=== PATIENT | female | born 1960 | race African-American/Black ===

== ENCOUNTER 2017-01-21 09:29 | Inpatient (IN) | payer MEDICAID, OTHER ==
[~2017-01-21] VITALS: Ht 172.7 cm; Wt 68.0 kg
[~2017-01-21 09:29] MED LIST: ASPI-1159 PO; EFAV600T PO; EMTR200C3 PO; HYDR-519 PO; MORP60TA6 PO; SERT25TA PO; TENO300T PO
[2017-01-21] MEDS ORDERED: ONDANSETRON HCL 4MG/2ML VIAL IV STA (09:41)
[2017-01-21] MEDS ORDERED: MORPHINE SULFATE 4 MG/ML CPJ (NOT FOR IM USE) IV STA (09:41)
[2017-01-21] MEDS ORDERED: SODIUM CHLORIDE 0.9% 1000ML BAG (SEPSIS BOLUS) IV ONE (09:45)
[2017-01-21 09:59] LABS: HEMATOCRIT. 40.3 % (36.0-48.0); HEMOGLOBIN. 13.6 g/dL (12.0-16.0); MEAN CORPUSCULAR HEMOGLOBIN 30.8 pg (28.0-32.0); MEAN CORPUSCULAR VOLUME 91.2 fL (81.0-99.0); MEAN PLATELET VOLUME 10.4 fl (7.4-10.4); PLATELET 311 x1000/uL (130-400); RED BLOOD CELL COUNT 4.42 mill/uL (4.2-5.4); RED CELL DISTRIBUTION WIDTH 19.2 % (11.6-14.6)
[2017-01-21 10:05] LABS: INR 1.1; PROTHROMBIN TIME 11.4 sec
[2017-01-21 10:15] LABS: CARBON DIOXIDE 27 mEq/L (21-32); CHLORIDE 90 mEq/L (98-107); ETHANOL BLOOD < 10 mg/dL; TROPONIN I < 0.02 ng/mL (0.00-0.04)
[2017-01-21] MEDS ORDERED: PIPERACILLIN/TAZ 3.375G PREMIX 50 ML IV ONE (10:30)
[2017-01-21] MEDS ORDERED: KCL 20MEQ/100ML PREMIX 100 ML IV ONE (10:30)
[2017-01-21 10:32] LABS: PLATELET ESTIMATE NORMAL
[2017-01-21] MEDS ORDERED: BUPIVACAINE HCL/PF 0.5% (5MG/ML) 10ML ONE (11:25)
[2017-01-21] MEDS ORDERED: SKIN ADHESIVE 0.7 GM EA TOP ONE (11:38)
[2017-01-21] MEDS ORDERED: BUPIVACAINE HCL/PF 0.25% (2.5MG/ML) 10ML ONE (11:39)
[2017-01-21] MEDS ORDERED: MIDAZOLAM HCL 2 MG/2 ML VIAL ONE (11:43)
[2017-01-21] MEDS ORDERED: ACETAMINOPHEN 650MG SUPP PR PRN (11:45)
[2017-01-21] MEDS ORDERED: MORPHINE SULFATE 2 MG/ML CPJ (NOT FOR IM USE) IV PRN (11:45)
[2017-01-21] MEDS ORDERED: KCL 20MEQ/100ML PREMIX 100 ML IV NR (11:45)
[2017-01-21] MEDS ORDERED: ONDANSETRON HCL 4MG/2ML VIAL IV PRN ×3 (11:45→12:45)
[2017-01-21] MEDS ORDERED: FENTANYL CITRATE/PF 50MCG/ML 2ML VIAL ONE ×3 (11:46→13:48)
[2017-01-21] MEDS ORDERED: SUCCINYLCHOLINE CHLORIDE 200MG/10ML VIAL IV ONE (11:47)
[2017-01-21] MEDS ORDERED: LIDOCAINE HCL 1% 20ML VIAL (Pyxis) INJ ONE (11:47)
[2017-01-21] MEDS ORDERED: PROPOFOL 200MG/20ML VIAL IV ONE (11:47)
[2017-01-21 11:48] LABS: CLARITY URINE CLEAR (CLEAR); COLOR URINE DARK YELLOW (YELLOW); GLUCOSE URINE NEGATIVE (NEGATIVE); KETONES URINE 2+ (NEGATIVE); LEUKOCYTE ESTERASE URINE 1+ (NEGATIVE); NITRITE URINE NEGATIVE (NEGATIVE); OCCULT BLOOD URINE TRACE (NEGATIVE); PROTEIN URINE 2+ (NEGATIVE); SPECIFIC GRAVITY URINE 1.024 (1.005-1.030)
[2017-01-21] MEDS ORDERED: ROCURONIUM BROMIDE 10MG/ML VIAL 5ML IV ONE (11:49)
[2017-01-21 12:18] LABS: *AMPHETAMINES SCREEN URINE NEGATIVE (NEGATIVE); *BARBITURATES SCREEN URINE NEGATIVE (NEGATIVE); *BENZODIAZEPINES SCREEN URINE NEGATIVE (NEGATIVE); *COCAINE SCREEN URINE NEGATIVE (NEGATIVE); CANNABINOID URINE SCREEN PRESUMTIVE POSITIVE (NEGATIVE); METHADONE URINE SCREEN NEGATIVE (NEGATIVE); OPIATES URINE SCREEN PRESUMTIVE POSITIVE (NEGATIVE); PHENCYCLIDINE URINE SCREEN NEGATIVE (NEGATIVE)
[2017-01-21] MEDS ORDERED: SODIUM CHLORIDE 0.9% 1,000 ML IV SCH ×2 (12:28→12:39)
[2017-01-21] MEDS ORDERED: IPRATROPIUM/ALBUTEROL 0.5-3(2.5)MG/3ML NEB INH PRN (12:30)
[2017-01-21] MEDS ORDERED: PIPERACILLIN/TAZ 3.375G PREMIX 50 ML IV SCH (12:30)
[2017-01-21] MEDS ORDERED: ENOXAPARIN 40MG/0.4ML SYR SUBCUT SCH (12:30)
[2017-01-21] MEDS ORDERED: ONDANSETRON HCL 4MG/2ML VIAL ONE (12:47)
[2017-01-21] MEDS ORDERED: DEXAMETHASONE 4MG/ML 1ML VIAL ONE (12:47)
[2017-01-21] MEDS ORDERED: ESMOLOL HCL 10MG/ML 10ML VIAL IV ONE (12:49)
[2017-01-21] MEDS ORDERED: NEOSTIGMINE METHYLSULFATE 1MG/ML 10 ML VIAL ONE (13:15)
[2017-01-21] MEDS ORDERED: GLYCOPYRROLATE 0.2 MG/ML 2ML VIAL ONE (13:15)
[2017-01-21] MEDS: HYDROMORPHONE HCL/PF 2MG/ML CPJ IV PRN ×3 (14:15→14:29)
[2017-01-21] MEDS ORDERED: ONDANSETRON INJ IV PRN (14:45)
[2017-01-21] MEDS ORDERED: LABETALOL 5MG/ML SYR 20 MG/4 ML SYRINGE IV PRN (14:45)
[2017-01-21] MEDS ORDERED: NALOXONE INJ IV PRN (14:45)
[2017-01-21] MEDS ORDERED: DIPHENHYDRAMINE INJ IV PRN (14:45)
[2017-01-21] MEDS: HYDROMORPHONE PCA 10MG/50ML IV PRN (14:57)
[2017-01-21 16:39] VITALS: BP 145/89
[2017-01-21] MEDS: DEXT 5%/0.45% NACL KCL 20MEQ/L 1,000 ML IV SCH (18:12)
[2017-01-21] MEDS: PIPERACILLIN/TAZ 3.375G PREMIX 50 ML IV SCH (18:12)
[2017-01-21 20:00] VITALS: BP 150/97
[2017-01-21] MEDS: FAMOTIDINE 20MG/2ML VIAL IV SCH (22:37)
[2017-01-22] VITALS: BP 124/86
[2017-01-22] MEDS ORDERED: KCL 20MEQ/100ML PREMIX 100 ML IV NR (00:30)
[2017-01-22] MEDS: PIPERACILLIN/TAZ 3.375G PREMIX 50 ML IV SCH ×5 (01:22→23:51)
[2017-01-22 04:00] VITALS: BP 100/69
[2017-01-22 06:50] LABS: HEMATOCRIT. 31.1 % (36.0-48.0); HEMOGLOBIN. 10.5 g/dL (12.0-16.0); MEAN CORPUSCULAR HEMOGLOBIN 31.2 pg (28.0-32.0); MEAN CORPUSCULAR VOLUME 92.2 fL (81.0-99.0); MEAN PLATELET VOLUME 10.3 fl (7.4-10.4); PLATELET 325 x1000/uL (130-400); RED BLOOD CELL COUNT 3.38 mill/uL (4.2-5.4); RED CELL DISTRIBUTION WIDTH 19.4 % (11.6-14.6)
[2017-01-22] MEDS: HYDROMORPHONE PCA 10MG/50ML IV PRN (07:45)
[2017-01-22 08:00] VITALS: BP 100/72
[2017-01-22] MEDS: FAMOTIDINE 20MG/2ML VIAL IV SCH ×2 (08:40→20:42)
[2017-01-22 09:38] LABS: CARBON DIOXIDE 27 mEq/L (21-32); CHLORIDE 105 mEq/L (98-107); HDL CHOLESTEROL 11 mg/dL (40-59); LDL CHOLESTEROL 98 mg/dL (5-100)
[2017-01-22] MEDS: DEXT 5%/0.45% NACL KCL 20MEQ/L 1,000 ML IV SCH ×2 (10:48→20:41)
[2017-01-22 12:00] VITALS: BP 96/70
[2017-01-22 16:00] VITALS: BP 112/78
[2017-01-22 16:31] LABS: PLATELET ESTIMATE NORMAL
[2017-01-22 20:00] VITALS: BP 104/64
[2017-01-23] VITALS: BP 95/69
[2017-01-23 04:00] VITALS: BP 116/70
[2017-01-23] MEDS: DEXT 5%/0.45% NACL KCL 20MEQ/L 1,000 ML IV SCH ×2 (06:23→16:59)
[2017-01-23] MEDS: PIPERACILLIN/TAZ 3.375G PREMIX 50 ML IV SCH ×2 (06:23→12:16)
[2017-01-23 07:12] LABS: BASOPHILS % 0.4 % (0.0-2.0); EOSINOPHILS % 1.4 % (0.0-5.0); HEMATOCRIT. 26.3 % (36.0-48.0); HEMOGLOBIN. 8.5 g/dL (12.0-16.0); LYMPHOCYTES % 8.2 % (20.0-50.0); MEAN CORPUSCULAR HEMOGLOBIN 30.3 pg (28.0-32.0); MEAN CORPUSCULAR VOLUME 93.6 fL (81.0-99.0); MEAN PLATELET VOLUME 9.9 fl (7.4-10.4); MONOCYTES % 9.4 % (2.0-8.0); NEUTROPHILS % 80.6 % (40.0-76.0); PLATELET 328 x1000/uL (130-400); RED BLOOD CELL COUNT 2.81 mill/uL (4.2-5.4); RED CELL DISTRIBUTION WIDTH 19.2 % (11.6-14.6)
[2017-01-23 07:15] LABS: CARBON DIOXIDE 29 mEq/L (21-32); CHLORIDE 104 mEq/L (98-107)
[2017-01-23 08:00] VITALS: BP 110/65
[2017-01-23] MEDS: FAMOTIDINE 20MG/2ML VIAL IV SCH ×2 (08:56→21:27)
[2017-01-23 12:00] VITALS: BP 111/75
[2017-01-23] MEDS: AMPICILLIN 2,000 MG in SODIUM CHLORIDE 0.9% 100 ML IV SCH ×2 (14:39→18:15)
[2017-01-23 16:00] VITALS: BP 116/79
[2017-01-23 20:00] VITALS: BP 113/78
[2017-01-23] MEDS: HYDROMORPHONE PCA 10MG/50ML IV PRN (22:45)
[2017-01-24] VITALS: BP 137/76
[2017-01-24] MEDS: DEXT 5%/0.45% NACL KCL 20MEQ/L 1,000 ML IV SCH ×3 (01:37→23:00)
[2017-01-24] MEDS: AMPICILLIN 2,000 MG in SODIUM CHLORIDE 0.9% 100 ML IV SCH ×4 (01:37→17:57)
[2017-01-24 04:00] VITALS: BP 144/81
[2017-01-24 06:18] LABS: HEMATOCRIT. 24.6 % (36.0-48.0); HEMOGLOBIN. 8.1 g/dL (12.0-16.0); MEAN CORPUSCULAR HEMOGLOBIN 30.7 pg (28.0-32.0); MEAN CORPUSCULAR VOLUME 93.4 fL (81.0-99.0); MEAN PLATELET VOLUME 9.1 fl (7.4-10.4); PLATELET 325 x1000/uL (130-400); RED BLOOD CELL COUNT 2.64 mill/uL (4.2-5.4); RED CELL DISTRIBUTION WIDTH 19.9 % (11.6-14.6)
[2017-01-24 07:22] LABS: CARBON DIOXIDE 30 mEq/L (21-32); CHLORIDE 106 mEq/L (98-107)
[2017-01-24 08:00] VITALS: BP 125/78
[2017-01-24] MEDS: FAMOTIDINE 20MG/2ML VIAL IV SCH ×2 (08:33→23:01)
[2017-01-24 08:41] LABS: PLATELET ESTIMATE NORMAL
[2017-01-24 12:00] VITALS: BP 132/78
[2017-01-24 16:00] VITALS: BP 119/80
[2017-01-24 20:00] VITALS: BP 153/78
[2017-01-24] MEDS: HYDROMORPHONE PCA 10MG/50ML IV PRN (23:04)
[2017-01-25] VITALS: BP 152/87
[2017-01-25] MEDS: AMPICILLIN 2,000 MG in SODIUM CHLORIDE 0.9% 100 ML IV SCH ×3 (01:03→13:05)
[2017-01-25 04:00] VITALS: BP 166/80
[2017-01-25 06:54] LABS: HEMATOCRIT. 26.8 % (36.0-48.0); HEMOGLOBIN. 8.9 g/dL (12.0-16.0); MEAN CORPUSCULAR HEMOGLOBIN 30.6 pg (28.0-32.0); MEAN CORPUSCULAR VOLUME 92.4 fL (81.0-99.0); MEAN PLATELET VOLUME 8.8 fl (7.4-10.4); PLATELET 397 x1000/uL (130-400); RED BLOOD CELL COUNT 2.91 mill/uL (4.2-5.4); RED CELL DISTRIBUTION WIDTH 18.6 % (11.6-14.6)
[2017-01-25 08:00] VITALS: BP 126/72
[2017-01-25 08:01] LABS: CHLORIDE 102 mEq/L (98-107)
[2017-01-25] MEDS: DEXT 5%/0.45% NACL KCL 20MEQ/L 1,000 ML IV SCH ×2 (08:41→18:19)
[2017-01-25] MEDS: FAMOTIDINE 20MG/2ML VIAL IV SCH ×2 (08:41→22:42)
[2017-01-25 08:43] LABS: CARBON DIOXIDE 25 mEq/L (21-32)
[2017-01-25 12:00] VITALS: BP 128/84
[2017-01-25 13:06] LABS: NUCLEATED RED BLOOD CELLS 1 /100 WBC
[2017-01-25 13:07] LABS: PLATELET ESTIMATE NORMAL
[2017-01-25] MEDS: HYDROCODONE/ACETAMINOPHEN 10/325MG TABLET PO SCH ×2 (14:54→22:42)
[2017-01-25 16:00] VITALS: BP 134/82
[2017-01-25] MEDS: HYDROMORPHONE HCL/PF 2MG/ML CPJ IV PRN ×2 (16:43→18:18)
[2017-01-25 20:00] VITALS: BP 142/85
[2017-01-25] MEDS ORDERED: MAGNESIUM 1 G PREMIX 100 ML IV NR (20:00)
[2017-01-26] VITALS: BP 127/71
[2017-01-26] MEDS: AMPICILLIN 2,000 MG in SODIUM CHLORIDE 0.9% 100 ML IV SCH ×5 (01:48→18:51)
[2017-01-26] MEDS: HYDROMORPHONE HCL/PF 2MG/ML CPJ IV PRN (02:04)
[2017-01-26 04:00] VITALS: BP 118/77
[2017-01-26] MEDS: HYDROCODONE/ACETAMINOPHEN 10/325MG TABLET PO SCH ×4 (05:33→23:48)
[2017-01-26 08:00] VITALS: BP 131/79
[2017-01-26] MEDS: FAMOTIDINE 20MG/2ML VIAL IV SCH ×2 (09:01→22:12)
[2017-01-26] MEDS: DEXT 5%/0.45% NACL KCL 20MEQ/L 1,000 ML IV SCH ×3 (09:01→23:42)
[2017-01-26] MEDS ORDERED: EFAVIRENZ 600 MG PO SCH (09:45)
[2017-01-26 12:00] VITALS: BP 97/98
[2017-01-26] MEDS: EFAVIRENZ 600MG TABLET PO SCH (12:10)
[2017-01-26] MEDS: TENOFOVIR 300MG TABLET PO SCH (12:10)
[2017-01-26] MEDS: EMTRICITABINE 200MG CAPSULE PO SCH (12:11)
[2017-01-26] MEDS: SERTRALINE HCL 25MG TABLET PO SCH (12:14)
[2017-01-26 16:00] VITALS: BP 123/73
[2017-01-26 20:00] VITALS: BP 119/82
[2017-01-27] VITALS: BP 117/72
[2017-01-27] MEDS: AMPICILLIN 2,000 MG in SODIUM CHLORIDE 0.9% 100 ML IV SCH ×4 (00:33→19:51)
[2017-01-27 04:00] VITALS: BP 144/89
[2017-01-27] MEDS: HYDROCODONE/ACETAMINOPHEN 10/325MG TABLET PO SCH ×4 (06:33→23:14)
[2017-01-27 06:54] LABS: BASOPHILS % 0.8 % (0.0-2.0); EOSINOPHILS % 1.5 % (0.0-5.0); HEMATOCRIT. 27.5 % (36.0-48.0); LYMPHOCYTES % 14.7 % (20.0-50.0); MEAN CORPUSCULAR HEMOGLOBIN 30.5 pg (28.0-32.0); MEAN CORPUSCULAR VOLUME 93.6 fL (81.0-99.0); MEAN PLATELET VOLUME 8.3 fl (7.4-10.4); MONOCYTES % 4.7 % (2.0-8.0); NEUTROPHILS % 78.3 % (40.0-76.0); PLATELET 413 x1000/uL (130-400); RED BLOOD CELL COUNT 2.94 mill/uL (4.2-5.4); RED CELL DISTRIBUTION WIDTH 19.4 % (11.6-14.6)
[2017-01-27 08:00] VITALS: BP 121/77
[2017-01-27] MEDS: TENOFOVIR 300MG TABLET PO SCH (08:14)
[2017-01-27] MEDS: EFAVIRENZ 600MG TABLET PO SCH (08:14)
[2017-01-27] MEDS: SERTRALINE HCL 25MG TABLET PO SCH (08:15)
[2017-01-27] MEDS: EMTRICITABINE 200MG CAPSULE PO SCH (08:15)
[2017-01-27] MEDS: FAMOTIDINE 20MG/2ML VIAL IV SCH ×2 (08:15→23:13)
[2017-01-27] MEDS ORDERED: LEVO500T15 PO (09:16)
[2017-01-27] MEDS: HYDROMORPHONE HCL/PF 2MG/ML CPJ IV PRN (09:50)
[2017-01-27 12:00] VITALS: BP 108/69
[2017-01-27] MEDS: DEXT 5%/0.45% NACL KCL 20MEQ/L 1,000 ML IV SCH ×2 (12:09→19:54)
[2017-01-27 16:00] VITALS: BP 121/83
[2017-01-27 20:00] VITALS: BP 142/85
[2017-01-28] VITALS: BP 134/85
[2017-01-28] MEDS: AMPICILLIN 2,000 MG in SODIUM CHLORIDE 0.9% 100 ML IV SCH ×3 (02:20→13:28)
[2017-01-28 04:00] VITALS: BP 133/80
[2017-01-28] MEDS: HYDROCODONE/ACETAMINOPHEN 10/325MG TABLET PO SCH ×2 (05:06→12:19)
[2017-01-28] MEDS: DEXT 5%/0.45% NACL KCL 20MEQ/L 1,000 ML IV SCH (06:15)
[2017-01-28 08:00] VITALS: BP 155/91
[2017-01-28] MEDS: SERTRALINE HCL 25MG TABLET PO SCH (08:57)
[2017-01-28] MEDS: FAMOTIDINE 20MG/2ML VIAL IV SCH (08:57)
[2017-01-28] MEDS: EFAVIRENZ 600MG TABLET PO SCH (08:58)
[2017-01-28] MEDS: TENOFOVIR 300MG TABLET PO SCH (08:58)
[2017-01-28] MEDS: EMTRICITABINE 200MG CAPSULE PO SCH (08:58)
[2017-01-28 12:00] VITALS: BP 136/92
[2017-01-28 15:03] VITALS: BP 129/83
== END 2017-01-28 15:37 | disposition home or self-care (01) | DRG 710 ==
LOC: ER 09:30 → 5WST 10:34 → EDBEDREQSVC 10:37 → EDBEDREQ 10:37 → ENRESERV 10:47 → 6EST 14:00
PROVIDERS: ADMIT Internal Medicine; ATTEND Internal Medicine
PROC: 0D1B0Z4 Bypass Ileum to Cutaneous, Open Approach (ICD-10-PCS; 2017-01-21)
PROC: 0W9G0ZZ Drainage of Peritoneal Cavity, Open Approach (ICD-10-PCS; 2017-01-21)
PROC: 0DTF0ZZ Resection of Right Large Intestine, Open Approach (ICD-10-PCS; principal; 2017-01-21 11:30)
DX: A41.9 Sepsis, unspecified organism (principal); K63.1 Perforation of intestine (nontraumatic); E43 Unspecified severe protein-calorie malnutrition; K65.0 Generalized (acute) peritonitis; E87.0 Hyperosmolality and hypernatremia; K66.8 Other specified disorders of peritoneum; K63.0 Abscess of intestine; R73.9 Hyperglycemia, unspecified; F99 Mental disorder, not otherwise specified; L02.91 Cutaneous abscess, unspecified; I10 Essential (primary) hypertension; E86.0 Dehydration; E87.6 Hypokalemia; K57.90 Diverticulosis of intestine, part unspecified, without perforation or abscess without bleeding; J98.11 Atelectasis; Z79.899 Other long term (current) drug therapy; Z93.3 Colostomy status; Z68.22 Body mass index [BMI] 22.0-22.9, adult
CPT/HCPCS: 36415; 71010; 74176; 80048; 80053; 80061; 80076; 80305; 81001; 83605; 83690; 83735; 83880; 84443; 84484; 85025; 85610; 86850; 86900; 86920; 87040; 87070; 87075; 87077; 87086; 87186; 87205; 88307; 93005; 93970; 96365; 96375; 97116; 97162; 99291; G0482; J0290; J0330; J1100; J1170; J2250; J2270; J2405; J2543; J2704; J2710; J3010; J3475; J3480; J3490; J7030; J7040; J7050; A4315

== ENCOUNTER 2017-01-29 14:09 | Emergency (ER) | payer OTHER ==
[~2017-01-29] VITALS: Ht 162.6 cm; Wt 99.0 kg
[~2017-01-29 14:09] MED LIST changes: +LEVO500T2 PO; -TENO300T PO; +VIRE PO
[2017-01-29] MEDS ORDERED: HYDROCODONE/ACETAMINOPHEN 5/325MG TABLET PO ONE (16:45)
[2017-01-29 18:10] VITALS: BP 106/72
[2017-02-10] MEDS ORDERED: FLUC200T PO (11:38)
[2017-02-10] MEDS ORDERED: LEVO500T2 PO (11:38)
[2017-02-10] MEDS ORDERED: LIP40 PO (11:41)
== END 2017-01-29 19:13 | disposition home or self-care (01) ==
LOC: ER 14:35
DX: K94.03 Colostomy malfunction (principal); I51.7 Cardiomegaly; I11.9 Hypertensive heart disease without heart failure; Z87.891 Personal history of nicotine dependence; Z79.82 Long term (current) use of aspirin; Z93.3 Colostomy status
CPT/HCPCS: 93005; 99283

== ENCOUNTER 2017-02-05 19:03 | Inpatient (IN) | payer OTHER ==
[~2017-02-05] VITALS: Ht 160 cm; Wt 93.0 kg
[~2017-02-05 19:03] MED LIST changes: +LEVO500T15 PO; -LEVO500T2 PO; +TENO300T PO; -VIRE PO
[2017-02-05] MEDS ORDERED: SODIUM CHLORIDE 0.9% 1,000 ML IV ONE (22:10)
[2017-02-05 22:46] LABS: BASOPHILS % 2.4 % (0.0-2.0); EOSINOPHILS % 1.9 % (0.0-5.0); HEMATOCRIT. 32.5 % (36.0-48.0); HEMOGLOBIN. 10.7 g/dL (12.0-16.0); LYMPHOCYTES % 19.9 % (20.0-50.0); MEAN CORPUSCULAR HEMOGLOBIN 30.4 pg (28.0-32.0); MEAN CORPUSCULAR VOLUME 92.2 fL (81.0-99.0); MEAN PLATELET VOLUME 9.1 fl (7.4-10.4); MONOCYTES % 7.4 % (2.0-8.0); NEUTROPHILS % 68.4 % (40.0-76.0); PLATELET 483 x1000/uL (130-400); RED BLOOD CELL COUNT 3.52 mill/uL (4.2-5.4); RED CELL DISTRIBUTION WIDTH 18.4 % (11.6-14.6)
[2017-02-05 22:51] LABS: INR 1.1; PROTHROMBIN TIME 11.1 sec
[2017-02-05 23:00] LABS: CHLORIDE 97 mEq/L (98-107)
[2017-02-05 23:09] LABS: CARBON DIOXIDE 21 mEq/L (21-32)
[2017-02-05] MEDS ORDERED: PIPERACILLIN/TAZ 3.375G PREMIX 50 ML IV ONE (23:15)
[2017-02-05] MEDS ORDERED: VANCOMYCIN 1 G PREMIX 200 ML IV SCH (23:15)
[2017-02-06 01:20] LABS: CLARITY URINE CLEAR (CLEAR); COLOR URINE YELLOW (YELLOW); GLUCOSE URINE NEGATIVE (NEGATIVE); KETONES URINE NEGATIVE (NEGATIVE); LEUKOCYTE ESTERASE URINE 1+ (NEGATIVE); NITRITE URINE NEGATIVE (NEGATIVE); OCCULT BLOOD URINE 2+ (NEGATIVE); PH URINE 5.5 (4.5-8.0); PROTEIN URINE NEGATIVE (NEGATIVE); SPECIFIC GRAVITY URINE 1.017 (1.005-1.030); UROBILINOGEN URINE 0.2 E.U./dL (0.2-1.0)
[2017-02-06 08:00] VITALS: BP 126/81
[2017-02-06 08:45] VITALS: BP 113/76
[2017-02-06 09:00] VITALS: BP 113/76
[2017-02-06 12:00] VITALS: BP 116/63
[2017-02-06] MEDS ORDERED: SODIUM CHLORIDE 0.9% 10ML VIAL ONE (14:02)
[2017-02-06] MEDS ORDERED: IOHEXOL-300 100 ML BOTTLE ONE (14:02)
[2017-02-06 16:00] VITALS: BP 132/87
[2017-02-06] MEDS ORDERED: MORPHINE SULFATE 2 MG/ML CPJ (NOT FOR IM USE) IV PRN (16:30)
[2017-02-06] MEDS: ASPIRIN 81MG EC TABLET PO SCH (17:56)
[2017-02-06] MEDS: HYDROCODONE/ACETAMINOPHEN 10/325MG TABLET PO SCH ×2 (17:56→21:31)
[2017-02-06] MEDS: PIPERACILLIN/TAZ 3.375G PREMIX 50 ML IV SCH ×2 (18:15→23:42)
[2017-02-06] MEDS: VANCOMYCIN 1 G PREMIX 200 ML IV SCH (19:01)
[2017-02-06 20:00] VITALS: BP 128/89
[2017-02-06] MEDS: ENOXAPARIN 30MG/0.3ML SYR SUBCUT SCH (21:33)
[2017-02-07] VITALS: BP 139/84
[2017-02-07 04:00] VITALS: BP 131/86
[2017-02-07] MEDS: PIPERACILLIN/TAZ 3.375G PREMIX 50 ML IV SCH ×3 (05:16→17:27)
[2017-02-07 08:00] VITALS: BP 102/73
[2017-02-07 08:07] LABS: BASOPHILS % 2.1 % (0.0-2.0); EOSINOPHILS % 5.9 % (0.0-5.0); HEMATOCRIT. 31.1 % (36.0-48.0); HEMOGLOBIN. 10.4 g/dL (12.0-16.0); LYMPHOCYTES % 19.6 % (20.0-50.0); MEAN CORPUSCULAR HEMOGLOBIN 30.9 pg (28.0-32.0); MEAN CORPUSCULAR VOLUME 92.5 fL (81.0-99.0); MEAN PLATELET VOLUME 9.1 fl (7.4-10.4); MONOCYTES % 9.9 % (2.0-8.0); NEUTROPHILS % 62.5 % (40.0-76.0); PLATELET 371 x1000/uL (130-400); RED BLOOD CELL COUNT 3.37 mill/uL (4.2-5.4); RED CELL DISTRIBUTION WIDTH 18.4 % (11.6-14.6)
[2017-02-07 08:26] LABS: CARBON DIOXIDE 25 mEq/L (21-32); CHLORIDE 102 mEq/L (98-107); HDL CHOLESTEROL 36 mg/dL (40-59); LDL CHOLESTEROL 207 mg/dL (5-100)
[2017-02-07] MEDS ORDERED: MORPHINE SULFATE 4 MG/ML CPJ (NOT FOR IM USE) IV PRN (09:00)
[2017-02-07] MEDS: ENOXAPARIN 30MG/0.3ML SYR SUBCUT SCH ×2 (09:13→21:07)
[2017-02-07] MEDS: ASPIRIN 81MG EC TABLET PO SCH ×2 (09:14→17:27)
[2017-02-07] MEDS: EFAVIRENZ 600MG TABLET PO SCH (09:14)
[2017-02-07] MEDS: TENOFOVIR 300MG TABLET PO SCH (09:14)
[2017-02-07] MEDS: EMTRICITABINE 200MG CAPSULE PO SCH (09:14)
[2017-02-07] MEDS: HYDROCODONE/ACETAMINOPHEN 10/325MG TABLET PO SCH ×4 (09:15→21:07)
[2017-02-07] MEDS: VANCOMYCIN 1 G PREMIX 200 ML IV SCH (11:47)
[2017-02-07] MEDS: SERTRALINE HCL 25MG TABLET PO SCH (11:54)
[2017-02-07 11:55] VITALS: BP 112/70
[2017-02-07 15:53] VITALS: BP 121/78
[2017-02-07 20:00] VITALS: BP 138/86
[2017-02-07] MEDS ORDERED: ATORVASTATIN CALCIUM 20MG TABLET PO SCH (21:00)
[2017-02-08] VITALS: BP 140/91
[2017-02-08] MEDS: PIPERACILLIN/TAZ 3.375G PREMIX 50 ML IV SCH ×3 (00:10→17:34)
[2017-02-08 04:00] VITALS: BP 145/97
[2017-02-08 05:39] LABS: EOSINOPHILS % 6.4 % (0.0-5.0); HEMOGLOBIN. 10.8 g/dL (12.0-16.0); LYMPHOCYTES % 22.4 % (20.0-50.0); MEAN CORPUSCULAR HEMOGLOBIN 31.3 pg (28.0-32.0); MEAN CORPUSCULAR VOLUME 92.9 fL (81.0-99.0); MEAN PLATELET VOLUME 9.1 fl (7.4-10.4); MONOCYTES % 7.7 % (2.0-8.0); NEUTROPHILS % 61.5 % (40.0-76.0); PLATELET 354 x1000/uL (130-400); RED BLOOD CELL COUNT 3.44 mill/uL (4.2-5.4); RED CELL DISTRIBUTION WIDTH 18.3 % (11.6-14.6)
[2017-02-08] MEDS: VANCOMYCIN 1 G PREMIX 200 ML IV SCH (05:56)
[2017-02-08 06:02] LABS: CARBON DIOXIDE 23 mEq/L (21-32); CHLORIDE 102 mEq/L (98-107); VANCOMYCIN TROUGH 13.8 ug/mL (5.0-10.0)
[2017-02-08 08:00] VITALS: BP 132/87
[2017-02-08] MEDS: ASPIRIN 81MG EC TABLET PO SCH ×2 (09:10→16:52)
[2017-02-08] MEDS: SERTRALINE HCL 25MG TABLET PO SCH (09:10)
[2017-02-08] MEDS: HYDROCODONE/ACETAMINOPHEN 10/325MG TABLET PO SCH ×4 (09:11→20:47)
[2017-02-08] MEDS: EMTRICITABINE 200MG CAPSULE PO SCH (09:12)
[2017-02-08] MEDS: TENOFOVIR 300MG TABLET PO SCH (09:12)
[2017-02-08] MEDS: EFAVIRENZ 600MG TABLET PO SCH (09:12)
[2017-02-08] MEDS: ENOXAPARIN 30MG/0.3ML SYR SUBCUT SCH ×2 (09:12→20:48)
[2017-02-08 12:00] VITALS: BP 124/85
[2017-02-08 16:11] VITALS: BP 124/84
[2017-02-08 20:00] VITALS: BP 142/81
[2017-02-08] MEDS: ATORVASTATIN CALCIUM 40MG TABLET PO SCH (20:46)
[2017-02-09] VITALS: BP 128/85
[2017-02-09] MEDS: PIPERACILLIN/TAZ 3.375G PREMIX 50 ML IV SCH ×5 (00:15→23:58)
[2017-02-09 02:00] VITALS: BP 126/91
[2017-02-09] MEDS: VANCOMYCIN 1 G PREMIX 200 ML IV SCH ×2 (02:36→19:19)
[2017-02-09 04:00] VITALS: BP 117/79
[2017-02-09 06:02] LABS: BASOPHILS % 1.1 % (0.0-2.0); EOSINOPHILS % 4.8 % (0.0-5.0); HEMATOCRIT. 33.1 % (36.0-48.0); HEMOGLOBIN. 10.8 g/dL (12.0-16.0); LYMPHOCYTES % 19.8 % (20.0-50.0); MEAN CORPUSCULAR HEMOGLOBIN 30.4 pg (28.0-32.0); MEAN CORPUSCULAR VOLUME 93.2 fL (81.0-99.0); MEAN PLATELET VOLUME 9.1 fl (7.4-10.4); MONOCYTES % 8.1 % (2.0-8.0); NEUTROPHILS % 66.2 % (40.0-76.0); PLATELET 326 x1000/uL (130-400); RED BLOOD CELL COUNT 3.55 mill/uL (4.2-5.4); RED CELL DISTRIBUTION WIDTH 18.1 % (11.6-14.6)
[2017-02-09 06:37] LABS: CHLORIDE 102 mEq/L (98-107)
[2017-02-09 06:41] LABS: CARBON DIOXIDE 23 mEq/L (21-32)
[2017-02-09 08:00] VITALS: BP 125/88
[2017-02-09] MEDS: ASPIRIN 81MG EC TABLET PO SCH ×2 (09:26→17:13)
[2017-02-09] MEDS: SERTRALINE HCL 25MG TABLET PO SCH (09:26)
[2017-02-09] MEDS: TENOFOVIR 300MG TABLET PO SCH (09:27)
[2017-02-09] MEDS: EFAVIRENZ 600MG TABLET PO SCH (09:27)
[2017-02-09] MEDS: HYDROCODONE/ACETAMINOPHEN 10/325MG TABLET PO SCH ×4 (09:27→22:38)
[2017-02-09] MEDS: ENOXAPARIN 30MG/0.3ML SYR SUBCUT SCH ×2 (09:28→22:41)
[2017-02-09] MEDS: EMTRICITABINE 200MG CAPSULE PO SCH (09:28)
[2017-02-09 12:00] VITALS: BP 129/84
[2017-02-09 16:00] VITALS: BP 109/84
[2017-02-09] MEDS ORDERED: MICAFUNGIN 100 MG in SODIUM CHLORIDE 0.9% 100 ML IV SCH (22:00)
[2017-02-09] MEDS: ATORVASTATIN CALCIUM 40MG TABLET PO SCH (22:38)
[2017-02-10] VITALS: BP 131/85
[2017-02-10 04:00] VITALS: BP 125/86
[2017-02-10] MEDS: PIPERACILLIN/TAZ 3.375G PREMIX 50 ML IV SCH ×3 (05:17→17:50)
[2017-02-10 08:00] VITALS: BP 140/102
[2017-02-10] MEDS: SERTRALINE HCL 25MG TABLET PO SCH (09:13)
[2017-02-10] MEDS: ENOXAPARIN 30MG/0.3ML SYR SUBCUT SCH (09:13)
[2017-02-10] MEDS: ASPIRIN 81MG EC TABLET PO SCH ×2 (09:14→17:50)
[2017-02-10] MEDS: HYDROCODONE/ACETAMINOPHEN 10/325MG TABLET PO SCH ×3 (09:14→17:50)
[2017-02-10] MEDS: EFAVIRENZ 600MG TABLET PO SCH (09:15)
[2017-02-10] MEDS: TENOFOVIR 300MG TABLET PO SCH (09:15)
[2017-02-10] MEDS: EMTRICITABINE 200MG CAPSULE PO SCH (09:15)
[2017-02-10] MEDS ORDERED: LEVO500T15 PO (11:38)
[2017-02-10] MEDS ORDERED: FLUC200T PO (11:38)
[2017-02-10] MEDS ORDERED: LIP40 PO (11:41)
[2017-02-10] MEDS: VANCOMYCIN 1 G PREMIX 200 ML IV SCH (11:56)
[2017-02-10 12:00] VITALS: BP 125/92
[2017-02-10 16:00] VITALS: BP 124/81
[2017-02-10 20:07] VITALS: BP 117/86
== END 2017-02-10 20:55 | disposition home health service (06) | DRG 721 ==
LOC: ER 21:53 → 5WST 02-06 01:24 → EDBEDREQ 02-06 05:50 → EDBEDREQTM 02-06 05:50 → ENRESERV 02-06 06:51
PROVIDERS: ADMIT Internal Medicine; ATTEND Internal Medicine
DX: T81.4XXA Infection following a procedure, initial encounter (principal); K65.1 Peritoneal abscess; B20 Human immunodeficiency virus [HIV] disease; E87.1 Hypo-osmolality and hyponatremia; I10 Essential (primary) hypertension; D25.9 Leiomyoma of uterus, unspecified; E78.5 Hyperlipidemia, unspecified; D64.9 Anemia, unspecified; M19.90 Unspecified osteoarthritis, unspecified site; F99 Mental disorder, not otherwise specified; B96.20 Unspecified Escherichia coli [E. coli] as the cause of diseases classified elsewhere; L03.90 Cellulitis, unspecified; Z93.3 Colostomy status; Z79.899 Other long term (current) drug therapy; Z90.49 Acquired absence of other specified parts of digestive tract; Z93.2 Ileostomy status
CPT/HCPCS: 36415; 71010; 74177; 80048; 80053; 80061; 80202; 81001; 83605; 83690; 85025; 85610; 87040; 87070; 87077; 87086; 87106; 87186; 87205; 93005; 96361; 96365; 96366; 96367; 97162; 97166; 99291; A4216; A6261; J1650; J2248; J2543; J3370; J7030; J7040; J7050; Q9967

== ENCOUNTER 2019-07-24 19:15 | Inpatient (IN) | payer OTHER ==
[~2019-07-24] VITALS: Ht 172.7 cm; Wt 133.4 kg
[2019-07-24] VITALS (7 sets, daily range): BP systolic 123–155; BP diastolic 58–83
[~2019-07-24 19:15] MED LIST changes: -ASPI-1159 PO; +ASPI-1497 PO; +FLUC200T PO; -LEVO500T15 PO; +LEVO500T2 PO; +LIP40 PO; -TENO300T PO; +VIRE PO
[2019-07-24 20:03] LABS: BASOPHILS % 0.6 % (0.0-2.0); EOSINOPHILS % 0.9 % (0.0-5.0); HEMATOCRIT. 38.7 % (36.0-48.0); HEMOGLOBIN. 12.6 g/dL (12.0-16.0); MEAN CORPUSCULAR HEMOGLOBIN 30.3 pg (28.0-32.0); MONOCYTES % 3.6 % (2.0-8.0); NEUTROPHILS % 66.9 % (40.0-76.0); PLATELET 241 x1000/uL (130-400); RED BLOOD CELL COUNT 4.16 mill/uL (4.2-5.4); RED CELL DISTRIBUTION WIDTH 16.6 % (11.6-14.6)
[2019-07-24 20:08] LABS: CHLORIDE 105 mEq/L (98-107)
[2019-07-24 20:10] LABS: ETHANOL BLOOD < 10 mg/dL
[2019-07-24 20:13] LABS: LDL CHOLESTEROL 123 mg/dL (5-100)
[2019-07-24 20:24] LABS: CLARITY URINE CLEAR (CLEAR); COLOR URINE YELLOW (YELLOW); KETONES URINE NEGATIVE (NEGATIVE); LEUKOCYTE ESTERASE URINE TRACE (NEGATIVE); NITRITE URINE NEGATIVE (NEGATIVE); OCCULT BLOOD URINE NEGATIVE (NEGATIVE); PH URINE 6.5 (4.5-8.0); PROTEIN URINE NEGATIVE (NEGATIVE); SPECIFIC GRAVITY URINE 1.015 (1.005-1.030); UROBILINOGEN URINE 0.2 E.U./dL (0.2-1.0)
[2019-07-24 20:59] LABS: *AMPHETAMINES SCREEN URINE NEGATIVE (NEGATIVE); *BARBITURATES SCREEN URINE NEGATIVE (NEGATIVE); *BENZODIAZEPINES SCREEN URINE NEGATIVE (NEGATIVE); *COCAINE SCREEN URINE NEGATIVE (NEGATIVE); CANNABINOID URINE SCREEN PRESUMTIVE POSITIVE (NEGATIVE); METHADONE URINE SCREEN NEGATIVE (NEGATIVE); OPIATES URINE SCREEN NEGATIVE (NEGATIVE); PHENCYCLIDINE URINE SCREEN NEGATIVE (NEGATIVE)
[2019-07-24] MEDS ORDERED: LEVETIRACETAM 500MG PREMIX 100 ML IV ONE (21:00)
[2019-07-24] MEDS ORDERED: NICARDIPINE 40MG/200ML PREMIX 200 ML IV PRN (21:15)
[2019-07-24] MEDS ORDERED: IOHEXOL-350 100 ML BOTTLE ONE (23:16)
[2019-07-24] MEDS: DEXT 5%/LACTATED RINGERS 1,000 ML IV SCH (23:44)
[2019-07-24] MEDS: NICARDIPINE 100 MG in SODIUM CHLORIDE 0.9% 60 ML IV PRN (23:47)
[2019-07-24] MEDS: DEXAMETHASONE 4MG/ML 1ML VIAL IV SCH (23:47)
[2019-07-25] VITALS (95 sets, daily range): BP systolic 105–159; BP diastolic 59–110
[2019-07-25] MEDS: MORPHINE SULFATE 2 MG/ML CPJ (NOT FOR IM USE) IV PRN ×3 (00:22→23:00)
[2019-07-25 05:25] LABS: BASOPHILS % 0.4 % (0.0-2.0); EOSINOPHILS % 0.1 % (0.0-5.0); HEMOGLOBIN. 12.8 g/dL (12.0-16.0); LYMPHOCYTES % 11.3 % (20.0-50.0); MEAN CORPUSCULAR HEMOGLOBIN 30.5 pg (28.0-32.0); MEAN CORPUSCULAR VOLUME 92.7 fL (81.0-99.0); MEAN PLATELET VOLUME 8.9 fl (7.4-10.4); MONOCYTES % 0.7 % (2.0-8.0); NEUTROPHILS % 87.5 % (40.0-76.0); PLATELET 250 x1000/uL (130-400); RED BLOOD CELL COUNT 4.21 mill/uL (4.2-5.4); RED CELL DISTRIBUTION WIDTH 16.7 % (11.6-14.6)
[2019-07-25 05:31] LABS: CHLORIDE 106 mEq/L (98-107)
[2019-07-25] MEDS: DEXAMETHASONE 4MG/ML 1ML VIAL IV SCH ×3 (05:37→17:45)
[2019-07-25] MEDS: NICARDIPINE 100 MG in SODIUM CHLORIDE 0.9% 60 ML IV PRN ×3 (05:54→21:53)
[2019-07-25] MEDS ORDERED: LEVETIRACETAM 500 MG in SODIUM CHLORIDE 0.9% 100 ML IV SCH (09:00)
[2019-07-25] MEDS ORDERED: IPRATROPIUM/ALBUTEROL 0.5-3(2.5)MG/3ML NEB HHN PRN (10:15)
[2019-07-25] MEDS: PANTOPRAZOLE SODIUM 40 MG/VIAL IV SCH (10:38)
[2019-07-25] MEDS ORDERED: LEVETIRACETAM 500MG PREMIX 100 ML IV SCH (11:30)
[2019-07-25] MEDS: DEXT 5%/LACTATED RINGERS 1,000 ML IV SCH (19:13)
[2019-07-25] MEDS: ATORVASTATIN CALCIUM 40MG TABLET PO SCH (20:17)
[2019-07-25] MEDS: LEVETIRACETAM 500MG PREMIX 100 ML IV SCH (20:17)
[2019-07-26] VITALS (81 sets, daily range): BP systolic 112–152; BP diastolic 61–106
[2019-07-26] MEDS ORDERED: DEXAMETHASONE 4MG/ML 1ML VIAL IV SCH (01:30)
[2019-07-26] MEDS: DEXAMETHASONE 4MG/ML 1ML VIAL IV SCH (01:37)
[2019-07-26 05:47] LABS: BASOPHILS % 0.1 % (0.0-2.0); HEMATOCRIT. 38.7 % (36.0-48.0); HEMOGLOBIN. 12.8 g/dL (12.0-16.0); LYMPHOCYTES % 9.6 % (20.0-50.0); MEAN CORPUSCULAR HEMOGLOBIN 30.5 pg (28.0-32.0); MEAN CORPUSCULAR VOLUME 92.1 fL (81.0-99.0); MEAN PLATELET VOLUME 8.8 fl (7.4-10.4); MONOCYTES % 1.1 % (2.0-8.0); NEUTROPHILS % 89.2 % (40.0-76.0); PLATELET 271 x1000/uL (130-400); RED CELL DISTRIBUTION WIDTH 16.7 % (11.6-14.6)
[2019-07-26 05:50] LABS: CHLORIDE 107 mEq/L (98-107)
[2019-07-26] MEDS: LEVETIRACETAM 500MG PREMIX 100 ML IV SCH ×2 (08:37→20:21)
[2019-07-26] MEDS: PANTOPRAZOLE SODIUM 40 MG/VIAL IV SCH (08:37)
[2019-07-26] MEDS ORDERED: CLONIDINE 0.1MG TABLET PO PRN (09:45)
[2019-07-26] MEDS: LOSARTAN POTASSIUM 100 MG TABLET PO SCH (10:18)
[2019-07-26] MEDS ORDERED: GADOBENATE DIMEGLUMINE 529 MG/ML 10ML IV ONE (13:45)
[2019-07-26] MEDS: DEXT 5%/LACTATED RINGERS 1,000 ML IV SCH (16:39)
[2019-07-26] MEDS: AMLODIPINE 5MG TABLET PO SCH (20:21)
[2019-07-26] MEDS: ATORVASTATIN CALCIUM 40MG TABLET PO SCH (20:21)
[2019-07-26] MEDS ORDERED: GABA300S PO (21:04)
[2019-07-26] MEDS ORDERED: MULT-1146 MT (21:04)
[2019-07-26] MEDS ORDERED: FERR325T6 MT (21:04)
[2019-07-26] MEDS ORDERED: ERGO2000 MT (21:04)
[2019-07-26] MEDS ORDERED: OXYC30TA89 MT (21:04)
[2019-07-26] MEDS ORDERED: BICT1TAB PO (21:04)
[2019-07-26] MEDS ORDERED: DICL100G31 TP (21:04)
[2019-07-26] MEDS ORDERED: MELO-106 MT (21:04)
[2019-07-26] MEDS ORDERED: TRAZ-252 MT (21:04)
[2019-07-26] MEDS ORDERED: FOLI-43 MT (21:04)
[2019-07-26] MEDS ORDERED: IBUP-2437 MT (21:04)
[2019-07-26] MEDS ORDERED: CITA40TA11 MT (21:04)
[2019-07-26] MEDS ORDERED: TIOT4MIS3 IH (21:04)
[2019-07-26] MEDS ORDERED: CYCL5TAB MT (21:04)
[2019-07-26] MEDS ORDERED: AMIT25TA9 MT (21:04)
[2019-07-27 06:36] LABS: BASOPHILS % 0.1 % (0.0-2.0); CHLORIDE 104 mEq/L (98-107); HEMATOCRIT. 39.4 % (36.0-48.0); HEMOGLOBIN. 13.3 g/dL (12.0-16.0); LYMPHOCYTES % 13.5 % (20.0-50.0); MEAN CORPUSCULAR HEMOGLOBIN 30.9 pg (28.0-32.0); MEAN CORPUSCULAR VOLUME 91.2 fL (81.0-99.0); MEAN PLATELET VOLUME 8.4 fl (7.4-10.4); NEUTROPHILS % 82.4 % (40.0-76.0); PLATELET 280 x1000/uL (130-400); RED BLOOD CELL COUNT 4.32 mill/uL (4.2-5.4); RED CELL DISTRIBUTION WIDTH 16.9 % (11.6-14.6)
[2019-07-27 07:33] VITALS: BP 129/80
[2019-07-27 08:00] VITALS: BP 142/92
[2019-07-27] MEDS ORDERED: EMTRICITABINE PO SCH (09:00)
[2019-07-27] MEDS ORDERED: BIKTARVY PO SCH (09:00)
[2019-07-27] MEDS ORDERED: TENOFOVIR ALAFENAMIDE PO SCH (09:00)
[2019-07-27] MEDS: AMLODIPINE 5MG TABLET PO SCH (09:18)
[2019-07-27] MEDS: PANTOPRAZOLE SODIUM 40 MG/VIAL IV SCH (09:18)
[2019-07-27] MEDS: LOSARTAN POTASSIUM 100 MG TABLET PO SCH (09:18)
[2019-07-27] MEDS: LEVETIRACETAM 500MG PREMIX 100 ML IV SCH (11:11)
[2019-07-27] MEDS: DEXT 5%/LACTATED RINGERS 1,000 ML IV SCH (11:15)
[2019-07-27 12:00] VITALS: BP 134/80
[2019-07-27 16:00] VITALS: BP 132/79
[2019-07-27 16:16] VITALS: BP 134/80
[2019-07-28] MEDS ORDERED: FAMOTIDINE 20MG/2ML VIAL IV SCH (09:00)
[2019-07-28 09:06] LABS: % CD 3 POS. LYMPHOCYTES 74.6 % (57.5-86.2); % CD 4 POS. LYMPHOCYTES 17.4 % (30.8-58.5); % CD 8 POS. LYMPH 55.7 % (12.0-35.5); ABSOLUTE CD 3 970 /uL (622-2402); ABSOLUTE CD 4 HELPER 226 /uL (359-1519); ABSOLUTE CD 8 SUPPRESSOR 724 /uL (109-897); ABSOLUTE LYMPHOCYTES 1.3 x10E3/uL (0.7-3.1); ABSOLUTE MONOCYTES 0.2 x10E3/uL (0.1-0.9); ABSOLUTE NEUTROPHILS 10.4 x10E3/uL (1.4-7.0); BASOPHILS 0 % (Not Estab.); CD4/CD8 RATIO 0.31 (0.92-3.72); HEMATOCRIT 38.9 % (34.0-46.6); HEMOGLOBIN 12.9 g/dL (11.1-15.9); IMMATURE GRANULOCYTES 0 % (Not Estab.); LYMPHOCYTES 11 % (Not Estab.); MEAN CORPUSCULAR HEMOGLOBIN 30.7 pg (26.6-33.0); MEAN CORPUSCULAR HGB CONC. 33.2 g/dL (31.5-35.7); MEAN CORPUSCULAR VOLUME 93 fL (79-97); MONOCYTES 1 % (Not Estab.); NEUTROPHILS 88 % (Not Estab.); PLATELETS 298 x10E3/uL (150-450); RED CELL DISTRIBUTION WIDTH 17.2 % (12.3-15.4); WBC 11.8 x10E3/uL (3.4-10.8)
== END 2019-07-27 18:30 | disposition home or self-care (01) | DRG 47 ==
LOC: ER 19:15 → EDBEDREQTM 20:54 → EDBEDREQSVC 20:54 → EDBEDREQ 20:54 → ENRESERV 21:22 → MICUSO 22:24 → 7WST 07-26 23:05
PROVIDERS: ADMIT Internal Medicine; ATTEND Internal Medicine
DX: G45.9 Transient cerebral ischemic attack, unspecified (principal); I61.8 Other nontraumatic intracerebral hemorrhage; G93.40 Encephalopathy, unspecified; B20 Human immunodeficiency virus [HIV] disease; G93.89 Other specified disorders of brain; R47.01 Aphasia; E66.9 Obesity, unspecified; E78.5 Hyperlipidemia, unspecified; F12.90 Cannabis use, unspecified, uncomplicated; I11.9 Hypertensive heart disease without heart failure; J44.9 Chronic obstructive pulmonary disease, unspecified; G89.4 Chronic pain syndrome; M19.90 Unspecified osteoarthritis, unspecified site; Z79.899 Other long term (current) drug therapy; Z79.82 Long term (current) use of aspirin; Z68.41 Body mass index [BMI] 40.0-44.9, adult; Z71.89 Other specified counseling
CPT/HCPCS: 36415; 70496; 70498; 70553; 71045; 80048; 80053; 80305; 80320; 81003; 82962; 83036; 83721; 84484; 85025; 86359; 86360; 92610; 93005; 96365; 97116; 97162; 99291; A9577; C9113; J1100; J1953; J2270; J3490; J7050; J7121; Q9967; A4315; G0480

== ENCOUNTER 2020-06-19 16:34 | Inpatient (IN) | payer BC, MEDICAID ==
[~2020-06-19] VITALS: Ht 172.7 cm; Wt 139.7 kg
[~2020-06-19 16:34] MED LIST changes: +AMIT25TA9 MT; -ASPI-1497 PO; +BICT1TAB PO; +CITA40TA11 MT; +CYCL5TAB MT; +DICL100G31 TP; -EFAV600T PO; -EMTR200C3 PO; +ERGO2000 MT; +FERR325T6 MT; -FLUC200T PO; +FOLI-43 MT; +GABA300S PO; -HYDR-519 PO; +IBUP-2437 MT; -LEVO500T2 PO; +MELO-106 MT; -MORP60TA6 PO; +MULT-1146 MT; +OXYC30TA89 MT; -SERT25TA PO; +TIOT4MIS3 IH; +TRAZ-252 MT; -VIRE PO
[2020-06-19 17:34] LABS: BASOPHILS % 0.6 % (0.0-2.0); EOSINOPHILS % 1.5 % (0.0-5.0); HEMATOCRIT. 37.6 % (36.0-48.0); HEMOGLOBIN. 12.6 g/dL (12.0-16.0); LYMPHOCYTES % 30.5 % (20.0-50.0); MEAN CORPUSCULAR HEMOGLOBIN 30.5 pg (28.0-32.0); MEAN CORPUSCULAR VOLUME 91.1 fL (81.0-99.0); MEAN PLATELET VOLUME 8.6 fl (7.4-10.4); MONOCYTES % 3.4 % (2.0-8.0); PLATELET 252 x1000/uL (130-400); RED BLOOD CELL COUNT 4.13 mill/uL (4.2-5.4); RED CELL DISTRIBUTION WIDTH 17.6 % (11.6-14.6)
[2020-06-19 17:45] LABS: INR 0.9
[2020-06-19 17:46] LABS: CHLORIDE 112 mEq/L (98-107)
[2020-06-19 17:54] LABS: CREATINE KINASE 52 IU/L (26-192)
[2020-06-19 23:30] VITALS: BP 114/78
[2020-06-20] VITALS: BP 114/78
[2020-06-20] MEDS ORDERED: ONDANSETRON HCL 4MG/2ML INJ IV PRN (01:30)
[2020-06-20] MEDS ORDERED: ACETAMINOPHEN 325MG TABLET PO PRN (01:30)
[2020-06-20 04:00] VITALS: BP 150/89
[2020-06-20] MEDS: PIPERACILLIN/TAZOBACTAM 3.375 G in DEXT 5% WATER 100 ML IV SCH ×3 (05:35→21:23)
[2020-06-20] MEDS ORDERED: PIPERACILLIN/TAZOBACTAM 3.375 G/VIAL IV SCH (06:00)
[2020-06-20 06:12] LABS: BASOPHILS % 0.3 % (0.0-2.0); EOSINOPHILS % 0.5 % (0.0-5.0); HEMATOCRIT. 38.1 % (36.0-48.0); HEMOGLOBIN. 12.5 g/dL (12.0-16.0); LYMPHOCYTES % 17.7 % (20.0-50.0); MEAN CORPUSCULAR HEMOGLOBIN 30.1 pg (28.0-32.0); MEAN CORPUSCULAR VOLUME 91.4 fL (81.0-99.0); MEAN PLATELET VOLUME 8.7 fl (7.4-10.4); MONOCYTES % 2.9 % (2.0-8.0); NEUTROPHILS % 78.6 % (40.0-76.0); PLATELET 273 x1000/uL (130-400); RED BLOOD CELL COUNT 4.16 mill/uL (4.2-5.4); RED CELL DISTRIBUTION WIDTH 17.7 % (11.6-14.6)
[2020-06-20 06:27] LABS: CHLORIDE 103 mEq/L (98-107)
[2020-06-20 06:36] LABS: LDL CHOLESTEROL 141 mg/dL (5-100)
[2020-06-20 06:37] LABS: HDL CHOLESTEROL 52 mg/dL (40-59)
[2020-06-20 07:53] VITALS: BP 133/82
[2020-06-20 08:36] LABS: CLARITY URINE CLOUDY (CLEAR); COLOR URINE YELLOW (YELLOW); KETONES URINE NEGATIVE (NEGATIVE); LEUKOCYTE ESTERASE URINE 3+ (NEGATIVE); NITRITE URINE NEGATIVE (NEGATIVE); OCCULT BLOOD URINE TRACE (NEGATIVE); PROTEIN URINE NEGATIVE (NEGATIVE); SPECIFIC GRAVITY URINE 1.016 (1.005-1.030)
[2020-06-20] MEDS: FAMOTIDINE 20MG TABLET PO SCH ×2 (10:22→17:16)
[2020-06-20] MEDS: ASPIRIN 325MG EC TABLET PO SCH (10:22)
[2020-06-20] MEDS ORDERED: DEXTROSE 50% WATER 50ML SYRINGE IV PRN (11:00)
[2020-06-20 11:50] VITALS: BP 154/93
[2020-06-20] MEDS: BLOOD SUGAR DIAGNOSTIC STRIP TEST SCH ×3 (12:20→21:23)
[2020-06-20] MEDS: SODIUM CHLORIDE 0.9% 1,000 ML IV SCH ×2 (13:13→21:21)
[2020-06-20] MEDS: INSULIN LISPRO 100 UNITS/ML SUBCUT SCH ×3 (13:26→21:20)
[2020-06-20 16:14] VITALS: BP 155/79
[2020-06-20] MEDS: ENOXAPARIN 30MG/0.3ML SYR SUBCUT SCH (17:21)
[2020-06-20 20:41] VITALS: BP 110/75
[2020-06-20] MEDS: ATORVASTATIN CALCIUM 40MG TABLET PO SCH (21:21)
[2020-06-20] MEDS: BIKTARVY 50-200-25MG TABLET PO SCH (21:30)
[2020-06-21] VITALS (7 sets, daily range): BP systolic 94–141; BP diastolic 51–87
[2020-06-21] MEDS: PIPERACILLIN/TAZOBACTAM 3.375 G in DEXT 5% WATER 100 ML IV SCH ×3 (05:37→21:30)
[2020-06-21] MEDS: ENOXAPARIN 30MG/0.3ML SYR SUBCUT SCH ×2 (05:37→17:56)
[2020-06-21] MEDS: SODIUM CHLORIDE 0.9% 1,000 ML IV SCH ×2 (05:37→17:00)
[2020-06-21 06:35] LABS: CHLORIDE 104 mEq/L (98-107)
[2020-06-21] MEDS: BLOOD SUGAR DIAGNOSTIC STRIP TEST SCH ×4 (06:35→21:30)
[2020-06-21 06:40] LABS: HEMATOCRIT. 35.4 % (36.0-48.0); HEMOGLOBIN. 11.8 g/dL (12.0-16.0); MEAN CORPUSCULAR HEMOGLOBIN 30.4 pg (28.0-32.0); MEAN CORPUSCULAR VOLUME 91.1 fL (81.0-99.0); MEAN PLATELET VOLUME 8.6 fl (7.4-10.4); PLATELET 235 x1000/uL (130-400); RED BLOOD CELL COUNT 3.88 mill/uL (4.2-5.4); RED CELL DISTRIBUTION WIDTH 17.5 % (11.6-14.6)
[2020-06-21] MEDS: INSULIN LISPRO 100 UNITS/ML SUBCUT SCH ×4 (07:50→21:00)
[2020-06-21] MEDS: ASPIRIN 325MG EC TABLET PO SCH (08:47)
[2020-06-21] MEDS: FAMOTIDINE 20MG TABLET PO SCH ×2 (08:48→17:56)
[2020-06-21 09:25] LABS: PLATELET ESTIMATE NORMAL
[2020-06-21] MEDS: BIKTARVY 50-200-25MG TABLET PO SCH (21:29)
[2020-06-21] MEDS: ATORVASTATIN CALCIUM 40MG TABLET PO SCH (21:30)
[2020-06-22 00:45] VITALS: BP 128/65
[2020-06-22] MEDS: SODIUM CHLORIDE 0.9% 1,000 ML IV SCH (03:00)
[2020-06-22 04:00] VITALS: BP 106/69
[2020-06-22] MEDS: PIPERACILLIN/TAZOBACTAM 3.375 G in DEXT 5% WATER 100 ML IV SCH (06:49)
[2020-06-22] MEDS: ENOXAPARIN 30MG/0.3ML SYR SUBCUT SCH (06:50)
[2020-06-22] MEDS: BLOOD SUGAR DIAGNOSTIC STRIP TEST SCH (06:50)
[2020-06-22] MEDS: FAMOTIDINE 20MG TABLET PO SCH (08:27)
[2020-06-22] MEDS: ASPIRIN 325MG EC TABLET PO SCH (08:27)
[2020-06-22 08:29] VITALS: BP 116/76
[2020-06-22] MEDS: INSULIN LISPRO 100 UNITS/ML SUBCUT SCH (08:31)
[2020-06-22 09:06] LABS: % CD 3 POS. LYMPHOCYTES 77.3 % (57.5-86.2); ABSOLUTE CD 3 1082 /uL (622-2402); ABSOLUTE CD 4 HELPER 266 /uL (359-1519); ABSOLUTE CD 8 SUPPRESSOR 812 /uL (109-897); ABSOLUTE EOSINOPHILS 0.1 x10E3/uL (0.0-0.4); ABSOLUTE LYMPHOCYTES 1.4 x10E3/uL (0.7-3.1); ABSOLUTE MONOCYTES 0.6 x10E3/uL (0.1-0.9); ABSOLUTE NEUTROPHILS 10.7 x10E3/uL (1.4-7.0); BASOPHILS 0 % (Not Estab.); CD4/CD8 RATIO 0.33 (0.92-3.72); HEMATOCRIT 37.7 % (34.0-46.6); HEMOGLOBIN 12.1 g/dL (11.1-15.9); IMMATURE GRANULOCYTES 0 % (Not Estab.); LYMPHOCYTES 11 % (Not Estab.); MEAN CORPUSCULAR HEMOGLOBIN 28.9 pg (26.6-33.0); MEAN CORPUSCULAR HGB CONC. 32.1 g/dL (31.5-35.7); MEAN CORPUSCULAR VOLUME 90 fL (79-97); MONOCYTES 4 % (Not Estab.); NEUTROPHILS 84 % (Not Estab.); PLATELETS 276 x10E3/uL (150-450); RBC 4.18 x10E6/uL (3.77-5.28); WBC 12.7 x10E3/uL (3.4-10.8)
[2020-06-22 12:10] VITALS: BP 110/78
[2020-06-22] MEDS ORDERED: CEFAZOLIN 1000MG PREMIX 50 ML IV SCH ×2 (13:00→14:00)
== END 2020-06-22 13:12 | disposition home or self-care (01) | DRG 871 ==
LOC: ER 16:34 → 6WST 21:53 → EDBEDREQSVC 22:07 → EDBEDREQTM 22:07 → EDBEDREQ 22:07 → ENRESERV 22:15
PROVIDERS: ADMIT Internal Medicine; ATTEND Internal Medicine
DX: A41.51 Sepsis due to Escherichia coli [E. coli] (principal); G93.41 Metabolic encephalopathy; N39.0 Urinary tract infection, site not specified; E44.0 Moderate protein-calorie malnutrition; R47.01 Aphasia; J98.11 Atelectasis; G45.9 Transient cerebral ischemic attack, unspecified; Z68.42 Body mass index [BMI] 45.0-49.9, adult; J44.9 Chronic obstructive pulmonary disease, unspecified; E87.6 Hypokalemia; E87.8 Other disorders of electrolyte and fluid balance, not elsewhere classified; I10 Essential (primary) hypertension; M19.90 Unspecified osteoarthritis, unspecified site; E66.01 Morbid (severe) obesity due to excess calories; F41.9 Anxiety disorder, unspecified; E11.9 Type 2 diabetes mellitus without complications; Z71.3 Dietary counseling and surveillance; Z79.899 Other long term (current) drug therapy; Z87.891 Personal history of nicotine dependence; Z86.73 Personal history of transient ischemic attack (TIA), and cerebral infarction without residual deficits; Z82.49 Family history of ischemic heart disease and other diseases of the circulatory system; Z83.3 Family history of diabetes mellitus
CPT/HCPCS: 36415; 71045; 80048; 80053; 80061; 81003; 82550; 82962; 83036; 83605; 84145; 85025; 86359; 86360; 87077; 87186; 96374; 97162; 99285; J0690; J1650; J1815; J2405; J2543; J7030; J7060